=== PATIENT | male | born 1955 | race Caucasian/White ===

== ENCOUNTER 2019-11-03 12:47 | Emergency (ER) | payer MEDICAID ==
[~2019-11-03] VITALS: Ht 160 cm; Wt 75.0 kg
[2019-11-03] MEDS ORDERED: ACETAMINOPHEN 325MG TABLET PO ONE (13:45)
[2019-11-03] MEDS ORDERED: IBUPROFEN 600MG TABLET PO STA (14:49)
[2019-11-03 15:15] LABS: CHLORIDE 100 mEq/L (98-107)
[2019-11-03 15:19] LABS: BASOPHILS % 0.2 % (0.0-2.0); HEMATOCRIT. 44.5 % (42.0-52.0); HEMOGLOBIN. 15.4 g/dL (14.0-18.0); LYMPHOCYTES % 19.5 % (20.0-50.0); MEAN CORPUSCULAR HEMOGLOBIN 30.2 pg (28.0-32.0); MEAN PLATELET VOLUME 9.5 fl (7.4-10.4); MONOCYTES % 8.8 % (2.0-8.0); NEUTROPHILS % 71.5 % (40.0-76.0); PLATELET 142 x1000/uL (130-400); RED BLOOD CELL COUNT 5.11 mill/uL (4.7-6.1); RED CELL DISTRIBUTION WIDTH 12.9 % (11.6-14.6)
[2019-11-03 16:42] VITALS: BP 120/78
== END 2019-11-03 16:43 | disposition home or self-care (01) ==
LOC: ER 12:47
DX: B34.9 Viral infection, unspecified (principal); Z20.828 Contact with and (suspected) exposure to other viral communicable diseases; E11.9 Type 2 diabetes mellitus without complications
CPT/HCPCS: 36415; 71045; 80053; 85025; 87635; 99284